=== PATIENT | female | born 1950 | race Caucasian/White ===

== ENCOUNTER 2016-07-29 06:37 | Emergency (ER) | payer BC ==
[2016-07-29] MEDS ORDERED: ASPIRIN 81 MG CHEWABLE TABLET PO ONE (06:53)
[2016-07-29] MEDS ORDERED: ADENOSINE 6 MG/2 ML VIAL IVP ONE (06:56)
--- NOTE | 2016-07-29 07:01 | Emergency Department Record ---
History of Present Illness - General Chief Complaint: Palpitations Stated Complaint: RAPID HEART RATE Time Seen by Provider: 07/29/16 06:44 Source: Patient Mode of Arrival: Wheelchair Limitations: No limitations - History of Present Illness Initial Comments: pt woke up at 5am with a racing heart. she thought it had slowed down but still wanted to be checked out. she has had this a few times before but has never been seen for it because it always spontaneously resolved. she also is diaphoretic and has a little discomfort in her jaw MD Complaint: "Heart racing" Onset/Timin -: Minutes(s) Context: Other Associated Symptoms: Other - Related Data Home Medications Medication Instructions Recorded Confirmed Last Taken Levothyroxine Sodium [Synthroid] 125 mcg PO DAILY 10/05/14 07/29/16 Unknown Lisinopril 20 mg PO DAILY 10/05/14 07/29/16 Unknown Metformin HCl [Glucophage] 1,000 mg PO BID 10/05/14 07/29/16 Unknown Pioglitazone HCl [Actos] 15 mg PO DAILY 10/05/14 07/29/16 Unknown Pravastatin Sodium [Pravachol] 40 mg PO DAILY 10/05/14 07/29/16 Unknown Allopurinol 100 mg PO DAILY 07/29/16 07/29/16 Unknown Amlodipine Besylate/Benazepril 1 each PO DAILY 07/29/16 07/29/16 Unknown [Amlodipine-Benazepril 5-10 mg] Colchicine 0.6 mg PO BID PRN 07/29/16 07/29/16 Unknown Dabigatran Etexilate Mesylate 150 mg PO DAILY 07/29/16 07/29/16 Unknown [Pradaxa] Sertraline HCl [Zoloft] 20 mg PO DAILY 07/29/16 07/29/16 Unknown Allergies Allergy/AdvReac Type Severity Reaction Status Date / Time No Known Drug Allergies Allergy Verified 10/05/14 12:48 Travel Screening - Travel/Exposure Within Last 30 Days Have you traveled within the last 30 days?: No - Travel/Exposure Within Last Year Have you traveled outside the [place] in the last year?: No - Additonal Travel Details Have you been exposed to anyone with a communicable illness?: No - Travel Symptoms Symptom Screening: None Review of Systems Reviewed: No additional complaints except as noted below Constitutional: Reports: As per HPI. Denies: Chills, Fever, Malaise, Night sweats, Weakness, Weight change Eyes: Reports: As per HPI. Denies: Eye discharge, Eye pain, Photophobia, Vision change ENT: Reports: As per HPI. Denies: Congestion, Dental pain, Ear pain, Epistaxis , Hearing loss, Throat pain Respiratory: Reports: As per HPI. Denies: Cough, Dyspnea, Hemoptysis, Stridor, Wheezes Cardiovascular: Reports: As per HPI, Arrhythmia, Chest pain, Palpitations. Denies: Dyspnea on exertion, Edema, Murmurs, Orthopnea, Paroxysmal nocturnal dyspnea, Rheumatic Fever, Syncope Endocrine: Reports: As per HPI. Denies: Fatigue, Heat or cold intolerance, Polydipsia, Polyuria Gastrointestinal: Reports: As per HPI. Denies: Abdominal pain, Constipation, Diarrhea, Hematemesis, Hematochezia, Melena, Nausea, Vomiting Genitourinary: Reports: As per HPI. Denies: Abnormal menses, Discharge, Dyspareunia, Dysuria, Frequency, Hematuria, Incontinence, Retention, Urgency Musculoskeletal: Reports: As per HPI. Denies: Arthralgia, Back pain, Gout, Joint swelling, Myalgia, Neck pain Skin: Reports: As per HPI. Denies: Bruising, Change in color, Change in hair/ nails, Lesions, Pruritus, Rash Neurological: Reports: As per HPI. Denies: Abnormal gait, Confusion, Headache, Numbness, Paresthesias, Seizure, Tingling, Tremors, Vertigo, Weakness Psychiatric: Reports: As per HPI. Denies: Anxiety, Auditory hallucinations, Depression, Homicidal thoughts, Suicidal thoughts, Visual hallucinations Hematological/Lymphatic: Reports: As per HPI. Denies: Anemia, Blood Clots, Easy bleeding, Easy bruising, Swollen glands Past Medical History - SOCIAL HISTORY Smoking Status: Never smoker Alcohol Use: None Drug Use: None - RESPIRATORY Hx Respiratory Disorders: No - CARDIOVASCULAR Hx Cardio Disorders: Yes Hx Hypertension: Yes - NEURO Hx Neuro Disorders: No - GI Hx GI Disorders: No - Hx Genitourinary Disorders: No - ENDOCRINE Hx Endocrine Disorders: Yes Hx Diabetes: Yes - MUSCULOSKELETAL Hx Musculoskeletal Disorders: No - PSYCH Hx Psych Problems: No - HEMATOLOGY/ONCOLOGY Hx Hematology/Oncology Disorders: No Family Medical History Any Significant Family History?: No Physical Exam - General General Appearance: Alert, Oriented x3, Cooperative, Mild distress - Head Head exam: Normal inspection - Eye Eye exam: Normal appearance, PERRL, EOMI Pupils: Normal accommodation - ENT ENT exam: Normal exam, Mucous membranes moist, Normal external ear exam, Normal orophraynx Ear exam: Normal external inspection. negative: External canal tenderness Nasal Exam: Normal inspection. negative: Discharge, Sinus tenderness Mouth exam: Normal external inspection, Tongue normal Teeth exam: Normal inspection. negative: Dental caries Throat exam: Normal inspection. negative: Tonsillar erythema, Tonsillar exudate - Neck Neck exam: Normal inspection, Full ROM. negative: Tenderness - Respiratory Respiratory exam: Normal lung sounds bilaterally. negative: Respiratory distress - Cardiovascular Cardiovascular Exam: Normal rhythm, Normal heart sounds, Tachycardia - GI/Abdominal GI/Abdominal exam: Soft, Normal bowel sounds. negative: Tenderness - Rectal Rectal exam: Deferred - exam: Deferred - Extremities Extremities exam: Normal inspection, Full ROM, Normal capillary refill. negative: Tenderness - Back Back exam: Reports: Normal inspection, Full ROM. Denies: Muscle spasm, Rash noted, Tenderness - Neurological Neurological exam: Alert, CN II-XII intact, Normal gait, Oriented X3 - Psychiatric Psychiatric exam: Normal affect, Normal mood - Skin Skin exam: Dry, Intact, Normal color, Warm Course Vital Signs 07/29/16 06:38 Pulse Rate 183 H Respiratory 20 Rate Blood Pressure 111/73 Pulse Ox 97 - Reevaluation(s) Reevaluation #1: 07/29/16 07:04 pt tried bearing down with no improvement. pt then given adenosine 6mg and converted to nsr. pt felt better Reevaluation #2: 07/29/16 07:05 care being turned over to dr batista Disposition Forms: Patient Portal Access
[2016-07-29 07:02] LABS: BASO % 0.5 % (0-6); EOS % 2.9 % (0-6); GRAN % 56.2 % (47-80); HEMATOCRIT 42.9 % (35.0-47.0); HEMOGLOBIN 13.7 gm/dl (11.6-16.0); LYMPH % 29.8 % (16-45); MEAN CELL VOLUME 91.1 fl (81-97); MEAN CORPUSCULAR HEMOGLOBIN 29.1 pg (27-33); MEAN CORPUSCULAR HGB CONC 31.9 g/dl (32-36); MEAN PLATELET VOLUME 10.4 fl (7.4-10.4); MONO % 10.6 % (0-9); PLATELET COUNT 198 K/uL (130-400); RED BLOOD COUNT 4.71 M/uL (3.80-5.40); WHITE BLOOD COUNT W/O DIFF 5.6 K/uL (4.2-12.2)
--- NOTE | 2016-07-29 07:13 | Emergency Department Record ---
History of Present Illness - General Chief Complaint: Palpitations Stated Complaint: RAPID HEART RATE Time Seen by Provider: 07/29/16 06:44 Source: Patient Mode of Arrival: Wheelchair Limitations: No limitations - History of Present Illness Initial Comments: 65 yo female patient signed out at shift turnover at the bedside with Dr Weaver The patient developed palpitations with heart racing just prior to 5am. She denies and chest pain or shortness of breath. The patient was found to be in SVT on arrival and converted to NSR with Adenosine. She is asymptomatic at the time of shift change. No known underlying CAD or prior diagnosed arrhythmia. She has had brief episodes of rapid heart rate occasionally over the last few years. MD Complaint: "Heart racing" Onset/Timin -: Minutes(s) Context: Other Associated Symptoms: Other - Related Data Home Medications Medication Instructions Recorded Confirmed Last Taken Levothyroxine Sodium [Synthroid] 125 mcg PO DAILY 10/05/14 07/29/16 Unknown Lisinopril 20 mg PO DAILY 10/05/14 07/29/16 Unknown Metformin HCl [Glucophage] 1,000 mg PO BID 10/05/14 07/29/16 Unknown Pioglitazone HCl [Actos] 15 mg PO DAILY 10/05/14 07/29/16 Unknown Pravastatin Sodium [Pravachol] 40 mg PO DAILY 10/05/14 07/29/16 Unknown Allergies Allergy/AdvReac Type Severity Reaction Status Date / Time No Known Drug Allergies Allergy Verified 10/05/14 12:48 Travel Screening - Travel/Exposure Within Last 30 Days Have you traveled within the last 30 days?: No - Travel/Exposure Within Last Year Have you traveled outside the [place] in the last year?: No - Additonal Travel Details Have you been exposed to anyone with a communicable illness?: No - Travel Symptoms Symptom Screening: None Review of Systems Constitutional: Reports: As per HPI. Denies: Chills, Fever, Malaise, Night sweats, Weakness, Weight change Eyes: Reports: As per HPI. Denies: Eye discharge, Eye pain, Photophobia, Vision change ENT: Reports: As per HPI. Denies: Congestion, Dental pain, Ear pain, Epistaxis , Hearing loss, Throat pain Respiratory: Reports: As per HPI. Denies: Cough, Dyspnea, Hemoptysis, Stridor, Wheezes Cardiovascular: Reports: As per HPI, Arrhythmia, Chest pain, Palpitations. Denies: Dyspnea on exertion, Edema, Murmurs, Orthopnea, Paroxysmal nocturnal dyspnea, Rheumatic Fever, Syncope Endocrine: Reports: As per HPI. Denies: Fatigue, Heat or cold intolerance, Polydipsia, Polyuria Gastrointestinal: Reports: As per HPI. Denies: Abdominal pain, Constipation, Diarrhea, Hematemesis, Hematochezia, Melena, Nausea, Vomiting Genitourinary: Reports: As per HPI. Denies: Abnormal menses, Discharge, Dyspareunia, Dysuria, Frequency, Hematuria, Incontinence, Retention, Urgency Musculoskeletal: Reports: As per HPI. Denies: Arthralgia, Back pain, Gout, Joint swelling, Myalgia, Neck pain Skin: Reports: As per HPI. Denies: Bruising, Change in color, Change in hair/ nails, Lesions, Pruritus, Rash Neurological: Reports: As per HPI. Denies: Abnormal gait, Confusion, Headache, Numbness, Paresthesias, Seizure, Tingling, Tremors, Vertigo, Weakness Psychiatric: Reports: As per HPI. Denies: Anxiety, Auditory hallucinations, Depression, Homicidal thoughts, Suicidal thoughts, Visual hallucinations Hematological/Lymphatic: Reports: As per HPI. Denies: Anemia, Blood Clots, Easy bleeding, Easy bruising, Swollen glands Past Medical History - SOCIAL HISTORY Smoking Status: Never smoker Alcohol Use: None Drug Use: None - RESPIRATORY Hx Respiratory Disorders: No - CARDIOVASCULAR Hx Cardio Disorders: Yes Hx Hypertension: Yes - NEURO Hx Neuro Disorders: No - GI Hx GI Disorders: No - Hx Genitourinary Disorders: No - ENDOCRINE Hx Endocrine Disorders: Yes Hx Diabetes: Yes - MUSCULOSKELETAL Hx Musculoskeletal Disorders: No - PSYCH Hx Psych Problems: No - HEMATOLOGY/ONCOLOGY Hx Hematology/Oncology Disorders: No Family Medical History Any Significant Family History?: No Physical Exam - General Limitations: No limitations Course Vital Signs 07/29/16 07/29/16 07/29/16 06:38 06:54 07:02 Temperature 98.5 F Pulse Rate 183 H Pulse Rate [ 99 H [employer] ] Respiratory 20 20 Rate Blood Pressure 111/73 Blood Pressure 111/77 [Right Arm] Pulse Ox 97 96 - Reevaluation(s) Reevaluation #1: The case was signed out by Dr Weaver The EKG's were reviewed. The labs are pending. 07/29/16 07:12 Reevaluation #2: The labs were reviewed No acute changes on the CBC, CMP,Troponin. 07/29/16 07:40 She remains asymptomatic. We discussed repeating the cardiac enzymes and establishing a follow up appointment with cardiology at [facility]. 07/29/16 07:51 Reevaluation #3: A referral was placed for the [facility] for the next available open appointment. 08/[address] Del Cid 07/29/16 09:10 Reevaluation #4: The lab called. The Troponin elevated to 0.185 which is positive. The patient remains asymptomatic Her preference for referral/transfer is [facility] I will discuss the case with [facility] Cardiology. 07/29/16 11:16 I SYEDA Truong of [facility] Cardiology He requests transfer and admit under D Service. 07/29/16 11:30 07/29/16 11:37 I SYEDA Alvarez. She accepts the patient for transfer to [facility]. Medical Decision Making - Lab Data Result diagrams: 07/29/16 06:45 07/29/16 06:45 Lab Results 07/29/16 Range/Units 06:45 WBC 5.6 (4.2-12.2) K/uL RBC 4.71 (3.80-5.40) M/uL Hgb 13.7 (11.6-16.0) gm/dl Hct 42.9 (35.0-47.0) % MCV 91.1 (81-97) fl MCH 29.1 (27-33) pg MCHC 31.9 L (32-36) g/dl RDW 14.0 (11.5-14.5) % Plt Count 198 (130-400) K/uL MPV 10.4 (7.4-10.4) fl Gran % 56.2 (47-80) % Lymphocytes % 29.8 (16-45) % Monocytes % 10.6 H (0-9) % Eosinophils % 2.9 (0-6) % Basophils % 0.5 (0-6) % Disposition Disposition: Transfer Clinical Impression: SVT (supraventricular tachycardia), NSTEMI (non-ST elevated myocardial infarction) Disposition: Acute Care Hospital Transfer Transfer To: [facility] Reason For Transfer: NSTEMI Accepting Physician: Dr Alvarez Time Discussed w/Accepting Physician: 11:38 Condition: (2) Stable Instructions: Supraventricular Tachycardia (ED) Referrals: LEANNE DEL CID M.D. [MEDICAL DOCTOR] - [facility] Specialty Clinics [Provider Group] Forms: Patient Portal Access Time of Disposition: 11:38
[2016-07-29 07:16] LABS: ANION GAP 10.8 (7-16); BLOOD UREA NITROGEN 21 mg/dL (7-17); CARBON DIOXIDE 25.2 mmol/L (22-30); CREATINE PHOSPHOKINASE 106 U/L (30-135); CREATININE 0.8 mg/dL (0.52-1.04); EST GLOMERULAR FILTRATION RATE > 60 ml/min; GLUCOSE,RANDOM 184 mg/dL (70-110)
[2016-07-29 07:28] LABS: CKMB 2.2 ug/L (0-6)
[2016-07-29 07:29] LABS: TROPONIN I < 0.012 ng/mL (0.00-0.034)
[2016-07-29 10:56] LABS: CKMB 2.8 ug/L (0-6)
[2016-07-29 11:15] LABS: TROPONIN I 0.185 ng/mL (0.00-0.034)
[2016-07-29] MEDS ORDERED: HEPARIN SODIUM 1000 UNIT/1 ML 10ML VIAL IVP ONE (11:23)
[2016-07-29] MEDS ORDERED: HEPARIN SODIUM/D5W 25,000 UNITS/500 ML BAG IV SCH (11:30)
== END 2016-07-29 12:51 | disposition short-term general hospital (02) ==
LOC: ER 06:37
DX: I21.4 Non-ST elevation (NSTEMI) myocardial infarction (principal); I47.1 Supraventricular tachycardia; E11.9 Type 2 diabetes mellitus without complications; Z79.84 Long term (current) use of oral hypoglycemic drugs; I10 Essential (primary) hypertension
CPT/HCPCS: 93041; 99285 ×2; 96365; 96375; 82550; 85025; 82553; 84484; 80048; 84443; 93005; 93010; J0153

== ENCOUNTER 2019-03-31 03:42 | Emergency (ER) | payer MEDICARE ==
[2019-03-31] MEDS ORDERED: ASPIRIN 81 MG CHEWABLE TABLET PO ONE (03:48)
--- NOTE | 2019-03-31 03:53 | Emergency Department Record ---
History of Present Illness - General Chief Complaint: Arrythmia/Palpitations Stated Complaint: NOT FEELING WELL Time Seen by Provider: 03/31/19 03:47 Source: Patient Mode of Arrival: Ambulatory Limitations: No limitations - History of Present Illness Initial Comments: 68 yo female presents to ED for evaluation of "not feeling well" this morning, unsure of the exact onset of her symptoms. Patient reports the sensation of palpitations, denies chest pain or discomfort. Patient reports a previous history of arrythmia due to a blood pressure medication. Patient denies fevers, chills, or recent illness. Patient denies cough of shortness of breath sy mptoms. -: Hour(s) Associated Symptoms: Denies other symptoms - Related Data Home Medications Medication Instructions Recorded Confirmed Last Taken Metoprolol Succinate [Toprol Xl] 50 mg PO BID 03/31/19 03/31/19 03/30/19 Allergies Allergy/AdvReac Type Severity Reaction Status Date / Time No Known Drug Allergies Allergy Verified 03/31/19 03:53 Review of Systems Constitutional: Denies: Chills, Fever, Malaise, Night sweats Eyes: Denies: Eye discharge, Eye pain ENT: Denies: Congestion, Ear pain, Epistaxis Respiratory: Denies: Cough, Dyspnea Cardiovascular: Reports: Palpitations. Denies: Chest pain, Dyspnea on exertion Endocrine: Denies: Fatigue, Heat or cold intolerance Gastrointestinal: Denies: Abdominal pain, Nausea, Vomiting Genitourinary: Denies: Incontinence, Retention Musculoskeletal: Denies: Arthralgia, Back pain Skin: Denies: Bruising, Change in color Neurological: Denies: Abnormal gait, Confusion, Headache, Seizure Psychiatric: Denies: Anxiety Hematological/Lymphatic: Denies: Anemia, Blood Clots Past Medical History - SOCIAL HISTORY Smoking Status: Never smoker Drug Use: None - RESPIRATORY Hx Respiratory Disorders: No - CARDIOVASCULAR Hx Cardio Disorders: Yes Hx Hypertension: Yes - NEURO Hx Neuro Disorders: No - GI Hx GI Disorders: No - Hx Genitourinary Disorders: No - ENDOCRINE Hx Endocrine Disorders: Yes Hx Diabetes: Yes - MUSCULOSKELETAL Hx Musculoskeletal Disorders: No - PSYCH Hx Psych Problems: No - HEMATOLOGY/ONCOLOGY Hx Hematology/Oncology Disorders: No Physical Exam - General General Appearance: Alert, Oriented x3, Cooperative, Mild distress Limitations: No limitations - Head Head exam: Atraumatic, Normocephalic, Normal inspection Head exam detail: negative: Abrasion, Contusion, Ojeda's sign, General tenderness, Hematoma, Laceration - Eye Eye exam: Normal appearance. negative: Conjunctival injection, Periorbital swelling, Periorbital tenderness, Scleral icterus - ENT Ear exam: negative: Auricular hematoma, Auricular trauma Nasal Exam: negative: Active bleeding, Discharge, Dried blood, Foreign body Mouth exam: negative: Drooling, Laceration, Muffled voice, Tongue elevation - Neck Neck exam: Normal inspection. negative: Meningismus, Tenderness - Respiratory Respiratory exam: Normal lung sounds bilaterally. negative: Rales, Respiratory distress, Rhonchi, Stridor - Cardiovascular Cardiovascular Exam: Irregular rhythm, Tachycardia - GI/Abdominal GI/Abdominal exam: Soft. negative: Rebound, Rigid, Tenderness - Rectal Rectal exam: Deferred - exam: Deferred - Extremities Extremities exam: Normal inspection. negative: Pedal edema, Tenderness - Back Back exam: Denies: CVA tenderness (R), CVA tenderness (L) - Neurological Neurological exam: Alert, Normal gait, Oriented X3 - Psychiatric Psychiatric exam: Normal affect, Normal mood - Skin Skin exam: Normal color. negative: Abrasion Type of lesion: negative: abrasion Course Vital Signs 03/31/19 03:49 Temperature 97.9 F Pulse Rate [ 174 H Pulse Ox Probe] Respiratory 24 Rate Blood Pressure 90/31 [Right Arm] Pulse Ox 96 - Reevaluation(s) Reevaluation #1: 03/31/19 03:57 EKG: SVT 170 Normal axis, normal intervals No acute ST-T wave changes are present Reevaluation #2: 03/31/19 04:06 Patient was given 12 mg IV with conversion of SVT to NSR without complications. Will obtain laboratory studies and CXR for further evaluation. 03/31/19 04:35 Laboratory studies were reviewed and appear grossly unremarkable for an acute process except for the following: Troponin T 0.028 CXR: No acute cardiopulmonary process Previous records were reviewed, patient was transfered to [facility] for elevated Troponin I 07/31 (0.185) Patient reports that she underwent nuclear stress testing as well as other cardiac evaluation, reports patient was not found to have any evidence for CAD. Dr. Dempsey thought her elevated Troponin was the result of her medication that caused the arrhythmia (HCTZ). Will redraw the Troponin at 2 hours to determine if her level is rising, and if stable, is likely the result of her SVT event. Patient is in agreement with the plan of care and is declining transfer for repeat cardiac testing at this time. Reevaluation #3: 03/31/19 06:38 Repeat Troponin is minimally elevated at 0.078 on re-examination. Patient was updated on her result, reports that she is feeling well and wants to go at this time. Patient denies any chest discomfort symptoms at any point, and the Troponin has not significantly elevated on repeat examination. Repeat is not felt to represent any form of NSTEMI, and is felt to be the result of SVT. Patient reports that her Troponin initially caleb with her episode in 07/31 as well. I did offer to consult with cardiology via transfer to [facility], patient is declining at this time. Patient was instructed to follow-up with Dr. Dempsey in 3-5 days as directed. Repeat EKG: NSR 70 Normal axis, normal intervals T wave inversion III, no other acute ST-T wave changes are present Medical Decision Making - Lab Data Result diagrams: 03/31/19 03:50 03/31/19 03:50 Disposition Disposition: Discharge Clinical Impression: SVT (supraventricular tachycardia), Elevated troponin Disposition: Home, Self-Care Condition: (2) Stable Instructions: Supraventricular Tachycardia (ED) Additional Instructions: Return to ED if your symptoms worsen or if you have any concerns. Follow-up with Dr. Dempsey in 3-5 days as directed. Forms: Patient Portal Access Time of Disposition: 06:41 Quality - Quality Measures Quality Measures: N/A - Blood Pressure Screening Does Patient Have Any of the Following: No Blood Pressure Classification: Pre-Hypertensive BP Reading Systolic Measurement: 122 Diastolic Measurement: 87 Screening for High Blood Pressure: < Pre-Hypertensive BP, F/U Documented > [G8950] Pre-Hypertensive Follow-up Interventions: Referral to alternative/primary care provider.
[2019-03-31] MEDS ORDERED: ADENOSINE 12 MG/4 ML VIAL IVP ONE (03:57)
[2019-03-31 03:58] LABS: ABSOLUTE NEUTROPHIL COUNT 4.97; BASO % 0.2 % (0-6); GRAN % 56.1 % (47-80); HEMATOCRIT 44.8 % (35.0-47.0); HEMOGLOBIN 14.5 gm/dl (11.6-16.0); LYMPH % 30.7 % (16-45); MEAN CELL VOLUME 92.9 fl (81-97); MEAN CORPUSCULAR HEMOGLOBIN 30.1 pg (27-33); MEAN CORPUSCULAR HGB CONC 32.4 g/dl (32-36); MEAN PLATELET VOLUME 10.1 fl (7.4-10.4); PLATELET COUNT 217 K/uL (130-400); RED BLOOD COUNT 4.82 M/uL (3.80-5.40); RED CELL DISTRIBUTION WIDTH 14.4 % (11.5-14.5); WHITE BLOOD COUNT W/O DIFF 8.9 K/uL (4.2-12.2)
[2019-03-31 04:10] LABS: BLOOD UREA NITROGEN 21 mg/dL (8-23); CREATININE 0.9 mg/dL (0.5-0.9); EST GLOMERULAR FILTRATION RATE > 60 mL/min
[2019-03-31 04:11] LABS: TOTAL PROTEIN 7.4 g/dL (6.6-8.7)
[2019-03-31 04:13] LABS: GLUCOSE,RANDOM 185 mg/dL (74-109)
[2019-03-31 04:15] LABS: ALT/SGPT 29 U/L (<33)
[2019-03-31] MEDS ORDERED: 0.9 % SODIUM CHLORIDE 1000ML 500 ML IV SCH (04:15)
[2019-03-31 04:16] LABS: ALB/GLOB RATIO 1.2 (1.1-1.8); ALBUMIN 4.1 g/dL (4.0-5.0); ALKALINE PHOSPHATASE 66 U/L (35-104); AST/SGOT 29 U/L (10.0-35.0)
--- NOTE | 2019-03-31 04:37 | RADIOLOGY REPORT ---
EXAMINATION: Two View Chest Radiographs EXAM DATE: 03/31/2019 4:27 AM TECHNIQUE: Frontal and lateral views INDICATION: cough COMPARISON: None ENCOUNTER: Not applicable FINDINGS: The heart, mediastinum, and pulmonary vasculature are normal. No lung consolidation or pleural effu sions are present. IMPRESSION: No acute cardiopulmonary disease is present. Dictated by: Dinorah Gonsalez MD on 03/31/2019 4:33 AM. .
== END 2019-03-31 06:59 | disposition home or self-care (01) ==
LOC: ER 03:42
DX: I47.1 Supraventricular tachycardia (principal); R79.89 Other specified abnormal findings of blood chemistry; R05 Cough; I10 Essential (primary) hypertension; E11.9 Type 2 diabetes mellitus without complications
CPT/HCPCS: 99284 ×2; 96374; 85025; 80053; 84484; 71046; 93005; J0153; 93010; J7030